=== PATIENT | female | born 2000 | race Caucasian/White ===

== ENCOUNTER 2024-04-24 20:42 | Emergency (ER) | payer OTHER, SELFPAY ==
[2024-04-24 20:45] VITALS: BP 114/82
--- NOTE | 2024-04-24 21:43 | ED.GENMED ---
History of Present Illness
<Ciarra Yeh MD - Last Filed: 04/25/24 00:58>
General
Chief Complaint: Abdominal Symptoms
Source: patient and family
Time Seen by Provider: 04/24/24 21:25
History of Present Illness
History of Present Illness:
This patient is a 23-year-old female with a history of gastroparesis, migraine, C. difficile in the past who states that she has had intractable nonbloody vomiting since yesterday morning. She is not able to tolerate liquids or solids, states she
is thirsty but cannot keep anything down. She also notes loose stools estimated to be 5-10 times over the last 24 hours, black in appearance without recent Pepto-Bismol ingestion. She denies bright red blood per rectum or coffee-ground emesis.
She denies sick contacts, recent travel, recent antibiotics, fever, chest pain, shortness of breath. She has somewhat longstanding lower abdominal discomfort which continues today.
Past History
<Ciarra Yeh MD - Last Filed: 04/25/24 00:58>
Past History
ED Past Medical History: Asthma, Psychiatric and Other (Gastroparesis, migraines, C. difficile)
ED Past Surgical History: None
Social History
Tobacco: Non-smoker
Alcohol: Occasional
Drug: None
Personal: Single
Living: with family
Employment: Student
Phy Exam
<Ciarra Yeh MD - Last Filed: 04/25/24 00:58>
Physical Exam
Physical Exam:
GENERAL: Alert , in no apparent distress
EYE: pupils equal and reactive
NECK: Supple, no significant adenopathy.
ENT: o/p clr, mm dry
CARDIAC: Regular rate and rhythm .
LUNGS: Clear breath sounds bilaterally, no acute respiratory distress, no wheezes/rales/rhonchi
ABDOMEN: Soft, minimal lower abdominal tenderness, no r/g, no cvat
NEUROLOGICAL: Alert and oriented, no focal neuro deficits
SKIN: Warm and dry, skin intact.
MUSCULOSKELETAL: No edema, well perfused.
PSYCH: Normal and appropriate interaction.
Course
<Ciarra Yeh MD - Last Filed: 04/25/24 00:58>
Orders/Labs/Results
Orders:
Orders
04/24/24 21:42
Cardiac Monitoring- Treatment ONCE
0.9% Sodium Chloride 1000 ml [Nss] 1,000 ml IV BOLUS
Metoclopramide [Reglan] 10 mg IV NOW STA
04/24/24 22:11
Basic Metabolic Panel Urgent
Complete Blood Count/No Diff Urgent
Lipase Urgent
Stool Culture Urgent
WILBERT Source: Feces/Stool
Specimen Description:
Date Specimen was Collected: 04/24/24
Time Specimen was Collected: 22:10
04/24/24 22:51
Test Result ONCE
04/24/24 23:09
US Abdomen Complete/Upper Urgent
Comment:
Reason For Exam: VOMITING
04/25/24 00:14
HCG, Serum Qualitative Screen Urgent
Lywmc-Zjna-Kzpchun Urgent
Potassium Urgent
04/25/24 00:54
Rizatriptan Orally Disintegrat [Maxalt Patient Office Rep (Orally Disintegrating)] 10 mg PO ONCE ONE
Abnormal Lab Results
04/24/24 04/25/24
22:11 00:14
Chloride 110 H mmol/L
(98-107)
Carbon Dioxide 17 L mmol/L
(22-30)
Glucose 101 H mg/dl
(70-99)
Total Bilirubin 0.1 L mg/dl
(0.2-1.3)
Alkaline Phosphatase 26 L U/L
(38-126)
Total Protein 6.0 L g/dl
(6.3-8.2)
Albumin 3.4 L g/dl
(3.5-5.0)
04/24/24 22:11
04/25/24 00:14
Vital Signs
Initial and Last Documented VS:
Initial Vital Signs
Temp Pulse Resp BP Pulse Ox
98.2 F 70 16 114/82 95
04/24/24 20:45 04/24/24 20:45 04/24/24 20:45 04/24/24 20:45 04/24/24 20:45
Last Documented Vital Signs
Temp Pulse Resp BP Pulse Ox
98.2 F 87 19 107/62 95
04/24/24 20:45 04/25/24 04:00 04/25/24 04:00 04/25/24 04:00 04/24/24 20:45
<Victor Hugo Acuña, - Last Filed: 04/25/24 23:58>
Orders/Labs/Results
Orders:
Orders
04/24/24 21:42
Cardiac Monitoring- Treatment ONCE
0.9% Sodium Chloride 1000 ml [Nss] 1,000 ml IV BOLUS
Metoclopramide [Reglan] 10 mg IV NOW STA
04/24/24 22:11
Basic Metabolic Panel Urgent
Complete Blood Count/No Diff Urgent
Lipase Urgent
Stool Culture Urgent
WILBERT Source: Feces/Stool
Specimen Description:
Date Specimen was Collected: 04/24/24
Time Specimen was Collected: 22:10
04/24/24 22:51
Test Result ONCE
04/24/24 23:09
US Abdomen Complete/Upper Urgent
Comment:
Reason For Exam: VOMITING
04/25/24 00:14
HCG, Serum Qualitative Screen Urgent
[place]-Zhxm-Jsqosol Urgent
Potassium Urgent
04/25/24 00:54
Rizatriptan Orally Disintegrat [Maxalt Patient Office Rep (Orally Disintegrating)] 10 mg PO ONCE ONE
Abnormal Lab Results
04/24/24 04/25/24
22:11 00:14
Chloride 110 H mmol/L
(98-107)
Carbon Dioxide 17 L mmol/L
(22-30)
Glucose 101 H mg/dl
(70-99)
Total Bilirubin 0.1 L mg/dl
(0.2-1.3)
Alkaline Phosphatase 26 L U/L
(38-126)
Total Protein 6.0 L g/dl
(6.3-8.2)
Albumin 3.4 L g/dl
(3.5-5.0)
04/24/24 22:11
04/25/24 00:14
Vital Signs
Initial and Last Documented VS:
Initial Vital Signs
Temp Pulse Resp BP Pulse Ox
98.2 F 70 16 114/82 95
04/24/24 20:45 04/24/24 20:45 04/24/24 20:45 04/24/24 20:45 04/24/24 20:45
Last Documented Vital Signs
Temp Pulse Resp BP Pulse Ox
98.2 F 87 19 107/62 95
04/24/24 20:45 04/25/24 04:00 04/25/24 04:00 04/25/24 04:00 04/24/24 20:45
<Victor Hugo Acuña DO - Last Filed: 04/25/24 23:58>
*Critical Care Note
Total Time (30-74mins, 75-104mins- exclusive of procedures): Not Applicable
<Ciarra Yeh MD - Last Filed: 04/25/24 00:58>
Update Note
Update Note:
Patient presents to the Emergency Department with nausea vomiting diarrhea____
Number and Complexity of Problems Addressed at the Encounter
� Chronic conditions affecting care:
� Acute Exacerbation and/or Progression of Chronic Illness:
� Differential Diagnosis includes: But not limited to exacerbation of gastroparesis, foodborne illness, viral illness, etc. etc.
Amount and/or Complexity of Data to be Reviewed and Analyzed
� I performed an independent evaluation of and my interpretation is:
EKG:
CT:
Xrays:
Laboratory Studies:sl decr bicarb likely c/w vomiting, hcg neg
Other:
� Review of other/old records reveals:
� Clinical information was obtained by an independent historian: Mother who is bedside
� Prescriptions/Medications Considered but not given:
� Further testing considered but not performed:
Risk of Complications and/or Morbidity or Mortality of Patient Management
� Social determinants of health affecting care:
� Discussion with other providers (PCP, Hospitalists, Consultants, etc):
� Escalation of care including admission/observation vs risk of discharge considered:1255am multiple reassessments by me, pt without further vomiting, has had an episode of diarrhea (stool sample sent). She feels nausea
resolved, and toelrating ice chips. Nontoxic, on her phone, watching tv, in nad. She has mild h/a and states she wouldtypically take her triptan for this. US pending. If unremkarable, and pt continues to feel well, comfortable with plan for
d/c with close f/u..aware of import of f/u and reasons to rted. abd remains soft, nondistended, no r/g, usual mild lower abd ttp.
<Victor Hugo Acuña, - Last Filed: 04/25/24 23:58>
Update Note
Update Note:
Patient presents to the Emergency Department with nausea vomiting diarrhea____
Number and Complexity of Problems Addressed at the Encounter
� Chronic conditions affecting care:
� Acute Exacerbation and/or Progression of Chronic Illness:
� Differential Diagnosis includes: But not limited to exacerbation of gastroparesis, foodborne illness, viral illness, etc. etc.
Amount and/or Complexity of Data to be Reviewed and Analyzed
� I performed an independent evaluation of and my interpretation is:
EKG:
CT:
Xrays:
Laboratory Studies:sl decr bicarb likely c/w vomiting, hcg neg
Other:
� Review of other/old records reveals:
� Clinical information was obtained by an independent historian: Mother who is bedside
� Prescriptions/Medications Considered but not given:
� Further testing considered but not performed:
Risk of Complications and/or Morbidity or Mortality of Patient Management
� Social determinants of health affecting care:
� Discussion with other providers (PCP, Hospitalists, Consultants, etc):
� Escalation of care including admission/observation vs risk of discharge considered:1255am multiple reassessments by me, pt without further vomiting, has had an episode of diarrhea (stool sample sent). She feels nausea
resolved, and toelrating ice chips. Nontoxic, on her phone, watching tv, in nad. She has mild h/a and states she wouldtypically take her triptan for this. US pending. If unremkarable, and pt continues to feel well, comfortable with plan for
d/c with close f/u..aware of import of f/u and reasons to rted. abd remains soft, nondistended, no r/g, usual mild lower abd ttp.
Ultrasound abdomen
IMPRESSION:
Normal gallbladder. No gallstones or sludge. Negative Ribeiro sign. No biliary ductal dilatation
Visualized liver, pancreas, spleen, and bilateral kidneys without acute abnormality.
No free fluid.
ED Attending Note
<Ciarra Yeh MD - Last Filed: 04/25/24 00:58>
-
Portions of this chart may have been created with voice recognition software.� Occasional wrong word or��sound alike� substitutions may have occurred due to the inherent limitations of voice recognition software.
Discharge Plan
Departure
Patient Disposition: Home (Routine Discharge)
Date of Disposition: 04/25/24
Time of Disposition: 03:55
Patient with high blood pressure during this ER visit?: Yes
Condition: Good
Discharge Problem:
Vomiting
Instructions: Diarrhea in teens and adults, Nausea and Vomiting, Adult (DC), BLOOD PRESSURE
Prescriptions:
No Action
sertraline 100 MG tablet
100 mg PO DAILY
levocetirizine [Xyzal] 5 MG tablet
5 mg PO DAILY
topiramate 50 mg Tablet
50 mg PO BID
Referrals:
SARAH VICTOR CRNP [Family Provider] -
Activity Restrictions/Additional Instructions:
IF YOU DEVELOP RECURRENT VOMITING, ANY FEVER, CHEST PAIN, TROUBLE BREATHING, NEW/WORSENING ABDOMINAL PAIN, BLEEDING, DIZZINESS, GET WORSE, DO NOT GET BETTER, OR OTHER WORRISOME SIGNS, GO TO THE ER IMMEDIATELY!
Interventions
Interventions:
*Risk Screen - Suicide Last Done: 04/24/24 20:45
*General Assessment Last Done: 04/24/24 22:02
*Neglect/Abuse Screening Last Done: 04/24/24 20:45
ED- Fall Risk Assessment Last Done: 04/24/24 22:38
*ED COVID-19 Vaccine History Last Done: 04/24/24 22:02
*Nursing Disposition Last Done: 04/25/24 04:10
AQ-Ziycts-Ciovpqrmxj Assessment Last Done: 04/24/24 22:38
Discharge Date and Time
Discharge Date/Time: 04/25/24 04:10
Print Language: URDU
[2024-04-24] MEDS: NSS 1000 IV (22:28)
[2024-04-24] MEDS: REGLAN 10 MG IV (22:29)
[2024-04-24 22:32] LABS: Hematocrit 39.7 % (37.0-47.0); Hemoglobin 13.8 g/dL (12.0-16.0); Mean Corp Hgb Conc. 34.8 g/dL (33.0-37.0); Mean Corpuscular Hgb 30.1 pg (27.0-31.0); Mean Corpuscular Volume 86.5 fL (81.0-99.0); Mean Platelet Volume 9.8 fL (7.4-10.4); Platelet Count 261 10^3/uL (130-400); Red Blood Cell Count 4.59 10^6/uL (4.20-5.40); Red Cell Dist. Width 13.1 % (11.5-14.5)
[2024-04-24 22:34] VITALS: BP 95/77
[2024-04-24 22:46] LABS: Blood Urea Nitrogen 11 mg/dl (7-17); Calcium 9.9 mg/dl (8.4-10.2); Carbon Dioxide 17 mmol/L (22-30); Chloride 110 mmol/L (98-107); Glucose 101 mg/dl (70-99); Lipase 159 U/L (23-300); Sodium 139 mmol/L (135-145); eGFR > 60.00
--- NOTE | 2024-04-24 22:55 | EDRN ---
Pt says she has had n/v/d for the past 24 hours, unable to keep anything down. Pt has hx of stomach issues. Stool described as intermittently liquid and formed. No ill contacts. Abdominal pain increases when pt has to have BM. Pt has had
chills. No cp, sob, fever/cough, urinary symptoms.
[2024-04-24 23:00] VITALS: BP 101/68
[2024-04-25 00:02] VITALS: BP 97/58
[2024-04-25 00:32] LABS: HCG, Serum Qualitative Screen Negative
[2024-04-25 00:42] LABS: ALT (SGPT) 13 U/L (0-35); AST (SGOT) 18 U/L (14-36); Albumin 3.4 g/dl (3.5-5.0); Alkaline Phosphatase 26 U/L (38-126); Potassium 3.7 mmol/L (3.5-5.1); Total Bilirubin 0.1 mg/dl (0.2-1.3)
[2024-04-25] MEDS: MAXALT MLT (ORALLY DISINTEGRATING) 10 MG PO (01:07)
[2024-04-25 01:08] VITALS: BP 106/64
[2024-04-25 02:00] VITALS: BP 101/65
[2024-04-25 04:00] VITALS: BP 107/62
== END 2024-04-25 04:10 | disposition home or self-care (01) ==
LOC: EMR 20:42
PROVIDERS: EMERGENCY PHYSICIAN Emergency Medicine; FAMILY PHYSICIAN Nurse Practitioner Gerontology
DX: R11.2 Nausea with vomiting, unspecified (principal); R19.7 Diarrhea, unspecified; R10.30 Lower abdominal pain, unspecified; R03.0 Elevated blood-pressure reading, without diagnosis of hypertension; J45.909 Unspecified asthma, uncomplicated; K31.84 Gastroparesis; G43.909 Migraine, unspecified, not intractable, without status migrainosus; Z91.018 Allergy to other foods; Z91.010 Allergy to peanuts
CPT/HCPCS: 99284; 96374; 96361; 76700; 80048; 80076; 83690; 84132; 84703; 85027; 87045; 87046; 87427